=== PATIENT | female | born 1970 | race Caucasian/White ===

== ENCOUNTER 2017-04-25 13:21 | Emergency (ER) | payer BC, OTHER ==
[~2017-04-25] VITALS: Ht 160 cm; Wt 68.2 kg
[2017-04-25 14:06] VITALS: Ht 160 cm; Wt 68.2 kg
[2017-04-25] MEDS ORDERED: ONDANSETRON (ODT) 4 MG TAB ODT STA (14:19)
[2017-04-25] MEDS ORDERED: HYDROCODONE/APAP (5/325) TAB PO ONE (14:30)
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
--- NOTE | 2017-04-25 15:33 | RADRPT ---
PROCEDURE: XR Left Shoulder. CLINICAL INDICATION: Left shoulder pain TECHNIQUE: 2 views of the left shoulder are available for review. COMPARISON: None available FINDINGS: Somewhat limited study without true external rotation radiograph. There is no definite acute fracture or dislocation. Joint spaces are preserved. Soft tissues are grossly unremarkable. IMPRESSION: 1. No definite acute osseous abnormality though the greater tuberosity is not well assessed given la ck of a external rotation radiograph. If there is high clinical concern for fracture consider repea t imaging. RPTAT: UU .Leonardo Reed MD, MD Date Time Electronically viewed and signed by .Leonardo Reed MD, on 04/25/2017 15:33 .K/
--- NOTE | 2017-04-25 15:34 | RADRPT ---
PROCEDURE: XR Chest. CLINICAL INDICATION: Chest pain TECHNIQUE: Single view of the chest COMPARISON: No prior study is available for comparison. FINDINGS: The lungs are clear. The heart size is normal. There is no pleural effusion. There is no pneumothorax. There is no acute osseous abnormality. IMPRESSION: 1. No acute cardiopulmonary findings. RPTAT: UU .Leonardo Reed MD, MD Date Time Electronically viewed and signed by .Leonardo Reed MD, on 04/25/2017 15:33 .K/
[2017-04-25] MEDS ORDERED: NAPR-260 PO (15:47)
[2017-04-25] MEDS ORDERED: HYDR-906 PO (15:47)
[2017-04-25] MEDS ORDERED: CYCL-319 PO (15:47)
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
== END 2017-04-25 16:47 | disposition home or self-care (01) ==
LOC: FTE 13:21
DX: S49.92XA Unspecified injury of left shoulder and upper arm, initial encounter (principal); S29.001A Unspecified injury of muscle and tendon of front wall of thorax, initial encounter; S39.92XA Unspecified injury of lower back, initial encounter; R07.9 Chest pain, unspecified; V49.40XA Driver injured in collision with unspecified motor vehicles in traffic accident, initial encounter
CPT/HCPCS: 71010; 73030